=== PATIENT | male | born 1970 | race African-American/Black ===

== ENCOUNTER 2019-12-23 00:09 | Outpatient (CLI) | payer BC, SELFPAY ==
[2019-12-23 18:02] LABS: SARS-CoV-2 RNA PCR Negative
== END 2019-12-23 00:10 | disposition home or self-care (01) ==
LOC: ANHCOVIDDT 00:10
PROVIDERS: PCP Internal Medicine; Visit Provider Internal Medicine Gastroenterology
DX: Z01.812 Encounter for preprocedural laboratory examination (principal); Z20.828 Contact with and (suspected) exposure to other viral communicable diseases
CPT/HCPCS: 87635; C9803; U0003

== ENCOUNTER 2019-12-26 00:30 | Day surgery (SDC) | payer BC, SELFPAY ==
[2019-12-19 15:11] VITALS: BMI 34.5
[2019-12-26 08:43] VITALS: BP 124/75; PULSE 83; RESP 16; TEMP 36.6; O2SAT 100; BMI 33.7
[2019-12-26] MEDS: LACTATED RINGERS 1,000 ML 150 ML IV CONT (08:56)
--- NOTE | 2019-12-26 09:19 | PM.HPGS ---
History of Present Illness History of Present Illness Consent: Risks, benefits, and alternatives have been discussed and questions answered. Patient agrees to proceed with procedure. Chief complaint: neoplasm screening/ Gerd Narrative: Freddy Orozco is a 49 year old AA male referred for gastroscopy and colonoscopy. Patient undergoing gastroscopy because a history of chronic heartburn which seemed to improvement stone. Raises the suspicion for possible Mcgregor's. Patient does have a history of chest pain and was evaluated by Cardiology. He denies any dysphagia odynophagia. Patient is undergoing a screening colonoscopy he has no lower GI tract symptoms and there is no family history of colon cancer ON LICENSE OF [facility] Social History Social History Years smoked: 20 Smoking status: Current every day smoker Tobacco type: cigarettes Alcohol intake: former Substance use type: does not use Living arrangements: with family Spiritual care concerns: No Meds Home Medications and Allergies Home Medications Medication Instructions Recorded Confirmed Type aspirin [Adult Low Dose Aspirin] 81 mg PO DAILY 12/19/19 12/26/19 History atorvastatin 40 mg PO DAILY 12/19/19 12/19/19 History carvedilol 3.12 mg PO BID 12/19/19 12/19/19 History furosemide 40 mg PO DAILY 12/19/19 12/26/19 History lisinopril 10 mg PO DAILY 12/19/19 12/26/19 History nitroglycerin 0.4 mg SUBLINGUAL PRN PRN 12/19/19 12/26/19 History potassium chloride 5 meq PO DAILY 12/19/19 12/26/19 History Allergies Allergy/AdvReac Type Severity Reaction Status Date / Time No Known Allergies Allergy Verified 12/26/19 08:39 Vital Signs Vital Signs - 24 hr 12/26/19 08:43 Temperature 36.6 C Pulse Rate 83 Respiratory Rate 16 Blood Pressure 124/75 Pulse Oximetry 100 Exam Const: Orientation/consciousness: patient oriented x3 Resp: Auscultation: clear to auscultation bilaterally Cardio: Rate: regular rate Rhythm: regular rhythm Heart sounds: no murmurs GI: GI Palp: Yes Soft to palpation, No Tenderness to palpation present (GI), Yes No hepatosplenomegaly present and No Palpable mass present Auscultation: normal bowel sounds Neuro: General: patient oriented x3 and no focal motor deficits Extrem: General: no pedal edema Assessment and Plan Additional Plan EGD for evaluation history of chronic heartburn and screening colonoscopy in average risk patient
--- NOTE | 2019-12-26 09:20 | WPDANESEPPF ---
Anes - Initial Pre Proc Eval Procedure: Operation Date: 12/26/19 09:30 Proposed Procedures p Esophagogastroduodenoscopy & Screening Colonoscopy - Matthew Talamantes MD Date/Time: 12/26/19 09:20 Surgeon: Matthew Talamantes MD Pre Op Diagnosis: neoplasm screening/ Gerd Patient Data Age: 49 Gender: M Height: 5 ft 7 in Weight: 97.8 kg Last Vital Signs Temp 36.6 C 12/26/19 08:43 Pulse 83 12/26/19 08:43 Resp 16 12/26/19 08:43 BP 124/75 12/26/19 08:43 Pulse Ox 100 12/26/19 08:43 Allergies Allergy/AdvReac Type Severity Reaction Status Date / Time No Known Allergies Allergy Verified 12/26/19 08:39 Home Medications Medication Instructions Recorded Confirmed Type aspirin [Adult Low Dose Aspirin] 81 mg PO DAILY 12/19/19 12/26/19 History atorvastatin 40 mg PO DAILY 12/19/19 12/19/19 History carvedilol 3.12 mg PO BID 12/19/19 12/19/19 History furosemide 40 mg PO DAILY 12/19/19 12/26/19 History lisinopril 10 mg PO DAILY 12/19/19 12/26/19 History nitroglycerin 0.4 mg SUBLINGUAL PRN PRN 12/19/19 12/26/19 History potassium chloride 5 meq PO DAILY 12/19/19 12/26/19 History Patient hx anesthesia problems: none Family hx anesthesia problems: none [facility] Past Medical History Medical History Hyperlipidemia Hypertension MARION (obstructive sleep apnea) Social History Social History Years smoked: 20 Smoking status: Current every day smoker Tobacco type: cigarettes Alcohol intake: former Substance use type: does not use Living arrangements: with family Spiritual care concerns: No Anes - Eval Final PreProcedure Day of Procedure 12/26/19 09:20 Patient weight: obese Heart: regular rate and rhythm Lungs: decreased breath sounds Airway: Mallampati scale class II Neurological: alert and oriented Last oral intake: >/= 8 hours ASA classification: III Emergent: no Anesthetic plan: proceed Anesthesia type and monitoring: general GIVS and standard monitoring Informed Consent: The patient's anesthetic plan and its attendant risks and benefits were discussed with the patient/family/POA. Questions were solicited and answers provided to the satisfaction of the patient/family/POA.
[2019-12-26] MEDS: BENZOCAINE (*SP) 60 ML SPRAY CAN (HURRICAINE) 1 SPRAY MUCOUS MEM (09:49)
[2019-12-26] MEDS: SIMETHICONE ORAL SUSPENSION 20 MG/0.3 ML 30 ML BOTTLE 0.6 ML IRRIGATION (10:12)
[2019-12-26 10:22] VITALS: BP 101/69; PULSE 75; RESP 18; O2SAT 100
[2019-12-26 10:32] VITALS: BP 117/78; PULSE 68; RESP 15; O2SAT 99
[2019-12-26 10:42] VITALS: BP 121/81; PULSE 73; RESP 25; O2SAT 98
== END 2019-12-26 11:00 | disposition home or self-care (01) ==
PROVIDERS: PCP Internal Medicine; Visit Provider Internal Medicine Gastroenterology
PROC: 0DJ08ZZ Inspection of Upper Intestinal Tract, Via Natural or Artificial Opening Endoscopic (ICD-10-PCS; CPT 43235; principal; 2019-12-26 09:30)
DX: Z12.11 Encounter for screening for malignant neoplasm of colon (principal); B96.81 Helicobacter pylori [H. pylori] as the cause of diseases classified elsewhere; K29.50 Unspecified chronic gastritis without bleeding; F17.210 Nicotine dependence, cigarettes, uncomplicated; K21.0 Gastro-esophageal reflux disease with esophagitis; K25.7 Chronic gastric ulcer without hemorrhage or perforation; K57.30 Diverticulosis of large intestine without perforation or abscess without bleeding; K64.8 Other hemorrhoids; E78.5 Hyperlipidemia, unspecified; I10 Essential (primary) hypertension; G47.33 Obstructive sleep apnea (adult) (pediatric); E66.9 Obesity, unspecified; Z68.33 Body mass index [BMI] 33.0-33.9, adult
CPT/HCPCS: 43239; 45378; 87081; 88305; 88342; J2704; J7120